=== PATIENT | female | born 1960 | race American Indian/Alaskan Native ===

== ENCOUNTER 2016-10-04 22:39 | Emergency (ER) | payer MEDICARE ==
[2016-10-04 22:40] VITALS: BMI 45.7
[2016-10-04] MEDS ORDERED: TDAP Vaccine 0.5 mL Syr IM ONE (23:02)
--- NOTE | 2016-10-04 23:08 | ED PDOC ---
Arrival/HPI - General Time Seen by Provider: 10/04/16 22:57 Historian: Patient - History of Present Illness Narrative History of Present Illness (Text): 10/04/16 23:04 A 55 year old female, whose past medical history includes hypertension, presents to the emergency department complaining of possible insect bite. Patient reports having a possible insect bite on her left arm and is asking for a tetanus shot. Patient notes the bite is pruritic, but denies of any fever or any other complaints. Time/Duration: Prior to Arrival Symptom Onset: Sudden Symptom Course: Unchanged Activities at Onset: Rest, Light Context: Home Past Medical History - Provider Review Nursing Documentation Reviewed: Yes - Infectious Disease Hx of Infectious Diseases: None - Tetanus Immunization Tetanus Immunization: Unknown - Past Medical History Past Medical History: No Previous - Cardiac Hx Hypertension: Yes - Integumentary Hx Cellulitis: Yes (left leg) - Musculoskeletal/Rheumatological Other/Comment: left leg lymphadema - Psychiatric Hx Depression: No Hx Emotional Abuse: No Hx Physical Abuse: No Hx Substance Use: No - Past Surgical History Past Surgical History: No Previous - Suicidal Assessment Feels Threatened In Home Enviroment: No Family/Social History - Physician Review Nursing Documentation Reviewed: Yes Family/Social History: No Known Family HX Smoking Status: Former Smoker Hx Alcohol Use: No Hx Substance Use: No Hx Substance Use Treatment: No Allergies/Home Meds Allergies/Adverse Reactions: Allergies No Known Allergies Allergy (Verified 02/13/14 15:58) Review of Systems - Physician Review All systems were reviewed & negative as marked: Yes - Review of Systems Constitutional: absent: Fevers, Night Sweats Gastrointestinal: absent: Diarrhea, Nausea, Vomiting Skin: Pruritis (swelling of insect bite on left arm) Physical Exam Vital Signs Reviewed: Yes Vital Signs Temp Pulse Resp BP Pulse Ox 10/04/16 23:00 98.2 F 72 16 102/60 99 Temperature: Afebrile Blood Pressure: Normal Pulse: Regular Respiratory Rate: Normal Appearance: Positive for: Well-Appearing Pain Distress: None Mental Status: Positive for: Alert and Oriented X 3 - Systems Exam Head: Present: Atraumatic, Normocephalic Pupils: Present: PERRL Extroacular Muscles: Present: EOMI Conjunctiva: Present: Normal Mouth: Present: Moist Mucous Membranes Neck: Present: Normal Range of Motion Respiratory/Chest: Present: Clear to Auscultation, Good Air Exchange. No: Respiratory Distress, Accessory Muscle Use Cardiovascular: Present: Regular Rate and Rhythm, Normal S1, S2. No: Murmurs Abdomen: Present: Normal Bowel Sounds. No: Tenderness, Distention, Peritoneal Signs Back: Present: Normal Inspection Upper Extremity: Present: Swelling (sfot tissue swelling of left distal arm) Lower Extremity: Present: Normal Inspection. No: Edema Neurological: Present: GCS=15, CN II-XII Intact, Speech Normal Skin: No: Warm Psychiatric: Present: Alert, Oriented x 3, Normal Insight, Normal Concentration Medical Decision Making ED Course and Treatment: 10/04/16 23:10 Impression: 55 year old female with pruritic insect bite on left arm. Physical exam shows soft tissue swelling on left distal arm, no warmth. Plan: -- Benadryl -- Boostrix Vaccine -- Reassess and disposition Prior Visits: Notes and results from previous visits were reviewed. Patient was last seen in the emergency department on 02/13/2014 for itchy left ear. Patient was discharged home. Progress Notes: - Medication Orders Current Medication Orders: Discontinued Medications Diphenhydramine HCl (Benadryl) 50 mg PO STAT STA Stop: 10/04/16 23:03 Last Admin: 10/04/16 23:17 Dose: 50 mg Tetanus/Reduced Diphtheria/Acell Pertussis (Boostrix Vaccine Inj) 0.5 ml IM .ONCE ONE Stop: 10/04/16 23:03 Last Admin: 10/04/16 23:17 Dose: 0.5 ml - Scribe Statement The provider has reviewed the documentation as recorded by the Andrew Green Provider Scribe Attestation: All medical record entries made by the Andrew were at my direction and personally dictated by me. I have reviewed the chart and agree that the record accurately reflects my personal performance of the history, physical exam, medical decision making, and the department course for this patient. I have also personally directed, reviewed, and agree with the discharge instructions and disposition. Disposition/Present on Arrival - Present on Arrival Any Indicators Present on Arrival: No History of DVT/PE: No History of Uncontrolled Diabetes: No Urinary Catheter: No History Surgical Site Infection Following: None - Disposition Have Diagnosis and Disposition been Completed?: Yes Diagnosis: Insect bite Disposition: HOME/ ROUTINE Disposition Time: 01:26 Condition: STABLE Discharge Instructions (ExitCare): Insect Bite or Sting (ED) Additional Instructions: please follow up with your doctor. return to er with worsening symptoms or concerns. Prescriptions: DiphenhydrAMINE [Benadryl] 25 mg PO Q6 PRN #20 cap PRN Reason: Itching / Pruritus Referrals: [facility] [Outside] - Follow up with primary [facility] [Outside] - Follow up with primary Forms: Functional Neuromodulation (Wolof)
[2016-10-04 23:10] VITALS: BP 102/60; PULSE 72; RESP 16; TEMP 98.2; O2SAT 99
== END 2016-10-04 23:20 | disposition home or self-care (01) ==
LOC: ED 22:39
DX: S40.862A Insect bite (nonvenomous) of left upper arm, initial encounter (principal); W57.XXXA Bitten or stung by nonvenomous insect and other nonvenomous arthropods, initial encounter; Y93.89 Activity, other specified; Y92.89 Other specified places as the place of occurrence of the external cause; Z23 Encounter for immunization